=== PATIENT | male | born 1980 | race Caucasian/White ===

== ENCOUNTER 2018-10-18 17:13 | Emergency (ER) | payer MEDICAID ==
[~2018-10-18] VITALS: Ht 180.3 cm; Wt 84.0 kg
[2018-10-18] MEDS ORDERED: IBUPROFEN 800MG TABLET PO ONE (17:45)
[2018-10-18 18:06] VITALS: BP 125/75
== END 2018-10-18 20:48 | disposition home or self-care (01) ==
LOC: EDBD 17:13 → ER 17:13
DX: M25.511 Pain in right shoulder (principal); M25.521 Pain in right elbow; V43.62XA Car passenger injured in collision with other type car in traffic accident, initial encounter; Y93.89 Activity, other specified; Y92.488 Other paved roadways as the place of occurrence of the external cause
CPT/HCPCS: 99283